=== PATIENT | male | born 1975 | race Caucasian/White ===

== ENCOUNTER 2018-05-31 07:12 | Outpatient (CLI) ==
--- NOTE | 2018-05-31 07:43 | DI ---
EXAM: Four views of the right knee. History: Right knee pain. Findings: No acute fracture or dislocation. No abnormal calcifications or radiopaque foreign bodies . Joint spaces are preserved. There is mild anterior soft tissue swelling and there is some edema s een within Hoffa's fat pad. Impression: 1. No acute osseous abnormality and no significant degenerative joint disease. 2. Mild anterior soft tissue swelling and there is some edema within Hoffa's fat pad.
== END 2018-05-31 07:13 | disposition home or self-care (01) ==
LOC: RAD 07:12
DX: M25.561 Pain in right knee (principal); G89.29 Other chronic pain

== ENCOUNTER 2018-10-04 07:21 | Outpatient (CLI) ==
--- NOTE | 2018-10-04 09:21 | MRI ---
EXAM: MRI right knee without contrast. HISTORY: Medial meniscus tear. Pain for approximate 6 months. No known injury. No right knee surg kushal reported.. TECHNIQUE: Using a local extremity coil on a high field strength magnet multiplanar multisequence MR I was performed of the right knee without intravenous or intra-articular gadolinium contrast.. COMPARISON: Three-view plain film examination right knee 05/31/2018. FINDINGS: Within the medial compartment there is increased intrameniscal signal within the posterior horn medial meniscus none of which unequivocally extends to the meniscal free edge. No discrete markel facing medial meniscal tear identified. Some medial compartment chondrosis with cartilage surface ir regularity. No underlying subchondral edema. Early productive osteophyte formation. Within the lateral compartment the lateral meniscus is intact without discrete surfacing meniscal tea r. There are also areas of increased intrameniscal signal none of which unequivocally extend to the meniscal free edge involving the lateral meniscus and may reflect meniscal degeneration. The lateral compartment cartilage relatively congruent without underlying subchondral edema. Within the patellofemoral compartment the patella seated with intact medial and lateral patellar reti naculum. Mild patellar chondrosis/chondromalacia patella with some fissuring. Trochlear groove cart ilage congruent without underlying subchondral edema. Early productive osteophyte formation. Small right knee effusion. Prominent plica. No large osteochondral loose bodies. Intact PCL fibers . There are intact ACL fibers identified. They are however stretched with increased signal intensit y and superimposed cruciate ligament ganglion formation. Bone marrow edema over the tibial spines wh ich may reflect stress response. No anterior translation of the tibia with respect to the femur. Th e extensor mechanism is intact. Proximal patellar tendinosis. The medial collateral ligament as wel l as lateral collateral ligament complex and posterolateral corner intact. Trace posterior joint ext ension/popliteal cyst.. IMPRESSION: No discrete surfacing meniscal tear identified. Areas of questionable meniscal degenera tion involving both the medial and lateral menisci. Mild patellar chondrosis/chondromalacia patella. Medial compartment chondrosis with cartilage surfac e irregularity. Early productive osteophyte formation. Small right knee effusion. Prominent plica. Trace posterior joint extension/popliteal cyst. Question sequelae of prior sprain/partial tearing to the anterior cruciate ligament. This may be chr onic. There may be superimposed mucoid degeneration. Superimposed anterior cruciate ligament gangli on formation. Bone marrow edema over the tibial spines which may reflect stress response. No anteri or translation of the tibia with respect to the femur. Intact PCL and collateral ligaments. Proximal patellar tendinosis.
== END 2018-10-04 07:22 | disposition home or self-care (01) ==
LOC: RAD 07:21
PROVIDERS: ATTEND Physician Assistant
DX: S83.241D Other tear of medial meniscus, current injury, right knee, subsequent encounter (principal)